=== PATIENT | female | born 1950 | race Hispanic/Latino ===

== ENCOUNTER 2019-02-18 12:07 | Emergency (ER) | payer OTHER ==
[2019-02-18] MEDS ORDERED: OCTYL 2-CYANOACRYLATE 1 EACH TP ONE (12:50)
[2019-02-18] MEDS ORDERED: ACETAMINOPHEN 325 MG TAB ONE (12:53)
== END 2019-02-18 13:44 | disposition home or self-care (01) ==
LOC: EDH 12:07
DX: S01.81XA Laceration without foreign body of other part of head, initial encounter (principal); I10 Essential (primary) hypertension; E78.00 Pure hypercholesterolemia, unspecified; E11.9 Type 2 diabetes mellitus without complications; Z88.0 Allergy status to penicillin; W18.39XA Other fall on same level, initial encounter; Y93.01 Activity, walking, marching and hiking; Y92.89 Other specified places as the place of occurrence of the external cause; Y99.8 Other external cause status
CPT/HCPCS: 12011; 70450; 70486; 72125

== ENCOUNTER 2022-01-09 16:31 | Emergency (ER) | payer MEDICARE, OTHER ==
[~2022-01-09] VITALS: Ht 167.6 cm; Wt 101.6 kg
[2022-01-09] MEDS ORDERED: IBUPROFEN 600 MG TABLET PO ONE (17:00)
[2022-01-09] MEDS ORDERED: ACETAMINOPHEN 650 MG/20.3 ML UDCUP PEG PRN (17:30)
[2022-01-09] MEDS ORDERED: LIDOCAINE HCL 2% VISCOUS 15 ML UDCUP PO ONE (17:30)
[2022-01-09] MEDS ORDERED: IBUPROFEN 100 MG/5 ML SUSP UDCUP PO ONE (17:30)
[2022-01-09] MEDS ORDERED: MAG/ALUM/SIMETH 30 ML UDCUP PO ONE (17:30)
[2022-01-09] MEDS ORDERED: NIRM1TAB PO (17:36)
[2022-01-09] MEDS ORDERED: OSEL75 PO (17:36)
[2022-01-09] MEDS ORDERED: OSELTAMIVIR PHOSPHATE 75 MG CAP ONE (17:48)
[2022-01-09] MEDS: OSELTAMIVIR PHOSPHATE 75 MG CAP PO SCH ×2 (17:56→17:57)
== END 2022-01-09 18:05 | disposition home or self-care (01) ==
LOC: EDH 16:31
DX: U07.1 COVID-19 (principal); J10.1 Influenza due to other identified influenza virus with other respiratory manifestations; E11.9 Type 2 diabetes mellitus without complications; E78.00 Pure hypercholesterolemia, unspecified; I10 Essential (primary) hypertension; Z88.0 Allergy status to penicillin; Z79.899 Other long term (current) drug therapy
CPT/HCPCS: 99284; 87635; 87880; 87804 ×2; C9803